=== PATIENT | female | born 1980 | race Caucasian/White ===

== ENCOUNTER 2018-11-03 08:00 | Outpatient (CLI) | payer OTHER | END 2018-11-03 23:59 | disposition home or self-care (01) | LOC: LAB 08:00 | PROVIDERS: ATTEND Obstetrics & Gynecology | DX: N64.52 Nipple discharge (principal) | CPT/HCPCS: 36415; 84146 ==

== ENCOUNTER 2018-11-03 11:47 | Outpatient (CLI) | payer OTHER ==
--- NOTE | 2018-11-03 13:56 | Mammography Report ---
Reason: BREAST PAIN, LEFT, NIPPLE DISCHARGE Procedure Date: 11/03/2018 Accession Number: [id number] / [id number] Procedure: MELO - Diagnostic Dig Bilat CPT Code: FULL RESULT: EXAM: Diagnostic Dig Bilat DATE: 11/03/2018 1:44 PM CLINICAL HISTORY: 38-year-old with six-month history of the left-sided breast pain and unilateral/uni ductal whitish-yellowish nipple discharge initially spontaneous. Discharge is increasing in frequency. No reported personal or family history of breast cancer. TECHNIQUE: (B) - Bilateral CC and MLO views were obtained. Additional spot magnification views were performed of the left breast CC, MLO and ML. COMPARISON: Baseline exam. PARENCHYMAL PATTERN: (D) - The breasts demonstrate heterogeneously dense fibroglandular parenchyma bilaterally. FINDINGS: Left breast: There are no suspicious masses, calcifications or areas of distortion. Possible asymmetry seen in the upper outer breast does not persist on the spot compression views. Similarly, spot compression views of the subareolar breast show no mammographic abnormality to explain the nipple discharge. Note: Patient was unable to undergo indicated left breast ultrasound to evaluate nipple discharge due to the need for preauthorization from her insurance provider. Patient has agreed to return for completion ultrasound when authorization has been obtained. Patient was informed her workup will be in incomplete status until the ultrasound is performed. Right breast: There are no suspicious masses, calcifications, or areas of distortion. IMPRESSION: Left breast: No mammographic findings to correspond to nonlocalized breast pain and spontaneous left nipple discharge. Patient unable to undergo completion the ultrasound evaluation for nipple discharge as described above. Incomplete. BI-RADS Category 0. Targeted ultrasound of the nipple and periareolar breast is indicated. Clinical follow-up for nipple discharge is also indicated. Right breast: Negative. BI-RADS Category 1 recommend annual screening mammography. RECOMMENDATION: (ADDUS) - Targeted ultrasound recommended. BI-RADS CATEGORY: (0) - Incomplete Examination - need additional evaluation. STANDARD QUALIFYING STATEMENTS: 1. This examination was not reviewed with the aid of Computer-Aided Detection (CAD). 2. A negative or benign imaging report should not preclude biopsy if clinically suspicious findings are present. 3. Dense breasts may obscure an underlying neoplasm. 4. This examination was reviewed without the aid of 3D breast imaging (tomosynthesis).
== END 2018-11-03 11:48 | disposition home or self-care (01) ==
LOC: DI 11:47
PROVIDERS: ATTEND Obstetrics & Gynecology
DX: N64.4 Mastodynia (principal); N64.52 Nipple discharge
CPT/HCPCS: 36415; 77066; 84146

== ENCOUNTER 2018-12-16 13:18 | Outpatient (CLI) | payer OTHER ==
--- NOTE | 2019-01-14 16:54 | Ultrasound Report ---
Reason: ABNORMAL MAMMOGRAM Procedure Date: 12/16/2018 Accession Number: [id number] / [id number] Procedure: US - Breast Unilateral Limited CPT Code: FULL RESULT: EXAM: Breast Unilateral Limited DATE: 12/16/2018 2:48 PM CLINICAL HISTORY: ABNORMAL MAMMOGRAM COMPARISON: None. TECHNIQUE: Whole breast ultrasound was performed of the left breast. Color Doppler was employed as appropriate. FINDINGS: Normal breast tissue with prominent duct is identified with no suspicious mass, collection or architectural distortion. IMPRESSION: Benign findings RECOMMENDATION: Recommend routine annual Screening mammography unless otherwise clinically indicated. BIRADS CATEGORY 2: Benign findings RADIA
== END 2018-12-16 13:19 | disposition home or self-care (01) ==
LOC: DI 13:18
PROVIDERS: ATTEND Obstetrics & Gynecology
DX: R92.8 Other abnormal and inconclusive findings on diagnostic imaging of breast (principal); N64.4 Mastodynia
CPT/HCPCS: 76642

== ENCOUNTER 2018-12-29 18:24 | Emergency (ER) | payer OTHER ==
[2018-12-29 18:45] VITALS: BP 117/58
[2018-12-29] MEDS ORDERED: LIDOCAINE/PRILOCAINE 2.5% CREAM 5 GM TUBE TOP STA (19:59)
[2018-12-29] MEDS ORDERED: CLINDAMYCIN 150 MG CAPSULE PO STA (19:59)
--- NOTE | 2018-12-29 20:00 | ED Physician Documentation ---
PD HPI SKIN - Stated complaint Stated Complaint: BITE TO RIGHT SIDE OF FACE - Chief complaint Chief Complaint: Wound - History obtained from History obtained from: Patient - History of Present Illness Timing - onset: Today (She woke up with a dime sized area of swelling on the right cheek today that has progressed today with a feeling of sub-mandibular lymphadenopathy on the right. No fevers or possibility of .) Review of Systems Constitutional: denies: Fever, Chills Nose: denies: Rhinorrhea / runny nose, Congestion Throat: denies: Sore throat Cardiac: denies: Chest pain / pressure, Palpitations PD PAST MEDICAL HISTORY - Present Medications Home Medications: Ambulatory Orders Medication Instructions Recorded Confirmed Clindamycin HCl [Clindamycin 300MG 300 mg PO Q6H #28 capsule 12/29/18 CAP] - Allergies Allergies/Adverse Reactions: Allergies Allergy/AdvReac Type Severity Reaction Status Date / Time No Known Drug Allergies Allergy Verified 12/29/18 18:45 - Social History Smoking Status: Former smoker PD ED PE NORMAL - Vitals Vital signs reviewed: Yes - General General: Alert and oriented X 3, No acute distress - HEENT HEENT: PERRL, EOMI, Other (There is about a 2 x 3 cm area of swelling just anterior to the right TMJ consistent with early abscess or cellulitis. Very mild right submandibular adenopathy, no trismus.) - Neck Neck: Supple, no meningeal sign, No bony TTP - Neuro Neuro: Alert and oriented X 3, Normal speech - Psych Psych: Normal mood, Normal affect Results - Vitals Vitals: Vital Signs - 24 hr 12/29/18 18:43 Temperature 36.1 C L Heart Rate 72 Respiratory 14 Rate Blood Pressure 117/58 L O2 Saturation 99 Oxygen O2 Source Room air PD MEDICAL DECISION MAKING - ED course ED course: 38-year-old woman with an area of swelling and cellulitis on the right cheek. Possible early abscess formation, some EMLA cream was placed and after an alcohol prep 18-gauge needle was used to probe it but there was no purulent drainage at this juncture. Advised that she may get more of a an abscess in which case she needed to return for incision and drainage. Departure - Departure Disposition: 01 Home, Self Care Clinical Impression: Facial cellulitis Condition: Good Record reviewed to determine appropriate education?: Yes Instructions: ED Staph Infec Abx Tx Only Prescriptions: Clindamycin HCl [Clindamycin 300MG CAP] 300 mg PO Q6H #28 capsule Comments: Return if worse, if not better in 48 - 72 hours, if you run a fever
== END 2018-12-29 20:23 | disposition home or self-care (01) ==
LOC: ED 18:24
DX: L03.211 Cellulitis of face (principal); Z87.891 Personal history of nicotine dependence
CPT/HCPCS: 10160; 99282; 99283; A9270; J3490